=== PATIENT | female | born 1985 | race African-American/Black ===

== ENCOUNTER 2017-04-22 15:24 | Emergency (ER) | payer MEDICARE, OTHER ==
[~2017-04-22 15:24] MED LIST: ARIP20TA5 PO; ARIP30TA4 PO; FLUO10CA13 PO; FLUO20CA16 PO; LEVO100T5 PO
[2017-04-22 16:15] VITALS: BP 110/52
[2017-04-22 16:30] LABS: BILIRUBIN,URINE NEGATIVE (NEG); GLUCOSE,URINE NEGATIVE (NEG); NITRITE,URINE NEGATIVE (NEG); PROTEIN,URINE NEGATIVE (NEG-TRACE); UROBILINOGEN,URINE 0.2 mg/dL (0.2 mg/dL)
[2017-04-22] MEDS ORDERED: KETOROLAC 30 MG/ML INJ. IV ONE (16:30)
[2017-04-22 16:32] LABS: BASO # 0.1 x10^3/uL (0.0-0.2); BASO % 1 % (0-3); EOS % 1 % (0-3); HEMATOCRIT 39.6 % (36.0-47.0); HEMOGLOBIN 13.3 g/dL (12.0-15.5); LYMPH # 3.3 x10^3/uL (1.0-4.8); LYMPH % 32 % (24-48); MEAN CORPUSCULAR HEMOGLOBIN 29 pg (25-35); MEAN CORPUSCULAR HGB CONC 34 g/dL (31-37); MEAN CORPUSCULAR VOLUME 86 fL (79-100); MONO % 6 % (0-9); NEUT % 60 % (31-73); PLATELET COUNT 258 x10^3/uL (140-400); RED BLOOD COUNT 4.63 x10^6/uL (3.50-5.40); RED CELL DISTRIBUTION WIDTH 16.5 % (11.5-14.5); WHITE BLOOD COUNT 10.1 x10^3/uL (4.0-11.0)
[2017-04-22 16:38] LABS: BACTERIA,URINE MANY /HPF (0-FEW); RBC,URINE RARE /HPF (0-2); SQUAMOUS EPITHELIAL CELL,UR MANY /LPF
[2017-04-22 16:44] LABS: CALCIUM 9.2 mg/dL (8.5-10.1); CREATININE 0.8 mg/dL (0.6-1.0); GFR 102.6
[2017-04-22 16:49] LABS: ALBUMIN 3.6 g/dL (3.4-5.0); ALBUMIN/GLOBULIN RATIO 0.9 (1.0-1.7); TOTAL BILIRUBIN 0.2 mg/dL (0.2-1.0); TOTAL PROTEIN 7.4 g/dL (6.4-8.2)
--- NOTE | 2017-04-22 18:01 | RAD ---
Indication: Left sided pelvic pain. The uterus measures 8.6 x 5.7 x 5.5 cm. The endometrium is 15 mm in thickness. No uterine mass is detected. The right ovary measures 2.9 x 2.0 x 3.2 cm and the left ovary measures 4.0 x 2.8 x 2.9 cm. There is blood flow to both ovaries. No adnexal mass or free fluid is detected. IMPRESSION: Unremarkable pelvic ultrasound. Electronically signed by: Armen Gilmore MD (04/22/2017 5:57 PM) [facility]
[2017-04-22] MEDS ORDERED: LEVO750T31 PO (18:43)
[2017-04-22] MEDS ORDERED: METR500T PO (18:43)
--- NOTE | 2017-04-22 18:43 | PHYS DOC ---
Past Medical History Past Medical History: Hyperthyroid Additional Past Medical Histor: Hypothyroidism Past Surgical History: No Surgical History Additional Past Surgical Histo: Sinus surgery. Alcohol Use: None Drug Use: None Adult General Chief Complaint Chief Complaint: ABDOMINAL PAIN HPI HPI Patient is a 31 year old female who presents with abdominal pain. The patient reports 3 day history of left lower quadrant pain associated with left flank pain. Denies any associated symptoms including fevers/chills, nausea/vomiting, diarrhea/constipation, dysuria, hematuria, vaginal bleeding, discharge. Denies history of abdominal surgeries. Previously healthy. Review of Systems Review of Systems Constitutional: Denies fever or chills HENT: Denies nasal congestion or sore throat Respiratory: Denies cough or shortness of breath Cardiovascular: Denies chest pain or edema GI: Reports abdominal pain, denies nausea, vomiting, bloody stools or diarrhea : Denies dysuria or hematuria Musculoskeletal: Reports flank pain Integument: Denies rash or skin lesions Neurologic: Denies headache, focal weakness or sensory changes Current Medications Current Medications Current Medications Medications (Trade) Dose Ordered Sig/Johnson Start Time Stop Time Status Last Admin Dose Admin Ketorolac Tromethamine (Toradol) 30 mg 1X ONCE 04/22/17 16:30 04/22/17 16:31 DC 04/22/17 16:50 30 MG Allergies Allergies Allergies Coded Allergies Type Severity Reaction Last Updated Verified acetaminophen Allergy Unknown 11/09/13 Yes Physical Exam Physical Exam Constitutional: Well developed, well nourished, no acute distress, non-toxic appearance. HENT: Normocephalic, atraumatic, bilateral external ears normal, oropharynx moist, nose normal. Eyes: conjunctiva normal, no discharge. Cardiovascular: RRR, no murmurs, no edema. Lungs & Thorax: LCTAB, no wheezing, no respiratory distress. Abdomen: soft, left lower quadrant abdominal tenderness without rebound/guarding , no masses or pulsatile masses, nondistended. Skin: Warm, dry, no erythema, no rash. Back: left lower back & CVA tenderness is present. Extremities: No tenderness, no edema. Neurologic: Alert and oriented X 3, no focal deficits noted. Psychologic: Affect normal, judgement normal, mood normal. Current Patient Data Vital Signs Vital Signs Date Time Temp Pulse Resp B/P (MAP) Pulse Ox O2 Delivery O2 Flow Rate FiO2 04/22/17 16:15 98.5 48 16 110/52 (71) 98 Room Air 98.5 Lab Values Laboratory Tests Test 04/22/17 15:59 04/22/17 16:12 04/22/17 16:30 Urine Collection Type Unknown Urine Color Yellow Urine Clarity Clear Urine pH 6.0 Urine Specific [place] 1.015 Urine Protein Negative mg/dL (NEG-TRACE) Urine Glucose (UA) Negative mg/dL (NEG) Urine Ketones (Stick) Negative mg/dL (NEG) Urine Blood Negative (NEG) Urine Nitrite Negative (NEG) Urine Bilirubin Negative (NEG) Urine Urobilinogen Dipstick 0.2 mg/dL (0.2 mg/dL) Urine Leukocyte Esterase Large (NEG) Urine RBC Rare /HPF (0-2) Urine WBC 11-20 /HPF (0-4) Urine Squamous Epithelial Cells Many /LPF Urine Bacteria Many /HPF (0-FEW) Urine Mucus Slight /LPF POC Urine HCG, Qualitative Hcg negative (Negative) White Blood Count 10.1 x10^3/uL (4.0-11.0) Red Blood Count 4.63 x10^6/uL (3.50-5.40) Hemoglobin 13.3 g/dL (12.0-15.5) Hematocrit 39.6 % (36.0-47.0) Mean Corpuscular Volume 86 fL (79-100) Mean Corpuscular Hemoglobin 29 pg (25-35) Mean Corpuscular Hemoglobin Concent 34 g/dL (31-37) Red Cell Distribution Width 16.5 % (11.5-14.5) H Platelet Count 258 x10^3/uL (140-400) Neutrophils (%) (Auto) 60 % (31-73) Lymphocytes (%) (Auto) 32 % (24-48) Monocytes (%) (Auto) 6 % (0-9) Eosinophils (%) (Auto) 1 % (0-3) Basophils (%) (Auto) 1 % (0-3) Neutrophils # (Auto) 6.0 x10^3uL (1.8-7.7) Lymphocytes # (Auto) 3.3 x10^3/uL (1.0-4.8) Monocytes # (Auto) 0.6 x10^3/uL (0.0-1.1) Eosinophils # (Auto) 0.1 x10^3/uL (0.0-0.7) Basophils # (Auto) 0.1 x10^3/uL (0.0-0.2) Sodium Level 141 mmol/L (136-145) Potassium Level 4.0 mmol/L (3.5-5.1) Chloride Level 104 mmol/L (98-107) Carbon Dioxide Level 29 mmol/L (21-32) Anion Gap 8 (6-14) Blood Urea Nitrogen 7 mg/dL (7-20) Creatinine 0.8 mg/dL (0.6-1.0) Estimated GFR (Cockcroft-Gault) 102.6 BUN/Creatinine Ratio 9 (6-20) Glucose Level 75 mg/dL (70-99) Calcium Level 9.2 mg/dL (8.5-10.1) Total Bilirubin 0.2 mg/dL (0.2-1.0) Aspartate Amino Transferase (AST) 19 U/L (15-37) Alanine Aminotransferase (ALT) 31 U/L (14-59) Alkaline Phosphatase 54 U/L (46-116) Total Protein 7.4 g/dL (6.4-8.2) Albumin 3.6 g/dL (3.4-5.0) Albumin/Globulin Ratio 0.9 (1.0-1.7) L Laboratory Tests 04/22/17 16:30 Laboratory Tests 04/22/17 16:30 Microbiology 04/22/17 Wet Prep - Final, Complete EKG EKG [] Radiology/Procedures Radiology/Procedures PROCEDURE: PELVIS COMPLETE Indication: Left sided pelvic pain. The uterus measures 8.6 x 5.7 x 5.5 cm. The endometrium is 15 mm in thickness. No uterine mass is detected. The right ovary measures 2.9 x 2.0 x 3.2 cm and the left ovary measures 4.0 x 2.8 x 2.9 cm. There is blood flow to both ovaries. No adnexal mass or free fluid is detected. IMPRESSION: Unremarkable pelvic ultrasound. Electronically signed by: Armen Gilmore MD (04/22/2017 5:57 PM) [facility] DICTATED and SIGNED BY: ARMEN GILMORE MD DATE: 04/22/17 1756[] Course & Med Decision Making Course & Med Decision Making Pertinent Labs and Imaging studies reviewed. (See chart for details) The patient presents with abdominal pain & flank pain. Obtained UA which is consistent with urinary tract infection, will treat as pyelonephritis with associated flank pain. Afebrile, normal vitals, not vomiting. Will treat with PO levaquin. Wet prep shows bacterial vaginosis, ultrasound negative for additional pelvic pathology. She felt better after treatment. Recommend rest, hydration, tylenol/ibuprofen for pain, gave prescriptions for levaquin & flagyl. Follow up with PCP or gynecology in 2-3 days. Come back for high fever , severe pain, uncontrolled vomiting, any otherwise worsening condition. Discharged home in stable condition. [] Dragon Disclaimer Dragon Disclaimer This electronic medical record was generated, in whole or in part, using a voice recognition dictation system. Departure Departure Impression: Primary Impression: Urinary tract infection Additional Impression: Bacterial vaginosis Disposition: 01 HOME, SELF-CARE Condition: STABLE Referrals: NILESH ENRIQUEZ APRN (PCP) Patient Instructions: Bacterial Vaginosis, [id number], Urinary Tract Infection, [id number] Additional Instructions: You were seen in the emergency department today. You have a urinary tract infection and you have an infection, bacterial vaginosis. This is not a sexually transmitted infection. Please take the prescribed antibiotics to treat condition. Take Tylenol or ibuprofen for pain. Drink fluids to stay hydrated. Follow-up with primary care physician in 2-3 days. Return to the emergency department for high fever, severe pain, uncontrolled vomiting, any otherwise worsening condition. Scripts Metronidazole (FLAGYL) 500 Mg Tablet 1 TAB PO BID, #14 TAB Prov: SINGH PENA MD 04/22/17 Levofloxacin (LEVAQUIN) 750 Mg Tablet 1 TAB PO DAILY, #5 TAB Prov: SINGH PENA MD 04/22/17 Problem Qualifiers SINGH PENA MD Apr 22, 2017 18:43
== END 2017-04-22 19:01 | disposition home or self-care (01) ==
LOC: ER 15:24
DX: N39.0 Urinary tract infection, site not specified (principal); B96.89 Other specified bacterial agents as the cause of diseases classified elsewhere; N76.0 Acute vaginitis; E03.9 Hypothyroidism, unspecified; Z88.6 Allergy status to analgesic agent
CPT/HCPCS: 36415; 76856; 80053; 81001; 81025; 85025; 87086; 87491; 87591; 96374; 99285; J1885; Q0111

== ENCOUNTER → 2017-05-04 | Day surgery (SDC) | payer MEDICARE, OTHER ==
[~2017-05-04] MED LIST changes: +IV RINGERS,LACTATED 1000ML 1,000 ML IV SCH; +LEVO750T31 PO; +LIDOCAINE 1% PF 2 ML VIAL. ID PRN; +LIDOCAINE 2% PF Vial for OR 5 ML VIAL. ONE; +LURA40TA PO; +METR500T PO; +MIDAZOLAM HCL/PF 2 MG/2 ML VIAL. IV PRN; +PROPOFOL 40 ML IV ONE; +fentaNYL PF VIAL 100 MCG/2 ML VIAL IV PRN
[2017-05-04 10:52] LABS: NEG OBC UR NEG; POS OBC UR POS
[2017-05-04 12:17] VITALS: BP 122/65
--- NOTE | 2017-05-05 14:09 | PATHOLOGY ---
PATHOLOGY REPORT * * * * * * * * FINAL DIAGNOSIS: A. Terminal ileum biopsy: - No significant pathologic abnormalities. B. Colon biopsies, right colon: - No significant pathologic abnormalities. C. Colon biopsies, left colon: - No significant pathologic abnormalities. D. Colorectal biopsies, rectal polyp: - Hyperplastic polyp and small mucosal-associated lymphoid aggregate. (JPM:pit; 05/05/2017) COMMENT: Sections of the terminal ileum biopsy reveal segments of small intestine mucosa, one of which contains a mucosal- associated lymphoid aggregate. There are no sprue-like changes or significant inflammatory changes. Sections of the right colon and left colon biopsies appear similar and reveal segments of colonic mucosa. There is no evidence of a chronic destructive colitis, lymphocytic colitis or collagenous colitis. Sections of the rectal biopsy reveal a small hyperplastic polyp and small mucosal-associated lymphoid aggregate. There are no adenomatous changes or evidence of malignancy. (JPM:pit; 05/05/2017) REPORT ELECTRONICALLY SIGNED BY: Warren Hooker M.D. DATE/TIME: 05/05/2017 14:08 * * * * * * * * GROSS PATHOLOGY: A. Received in formalin labeled "Keren Sylvester, terminal ileum BX," is a segment of bragg soft tissue measuring 0.4 cm in maximum dimension. The specimen is submitted entirely in cassette A1. B. Received in formalin labeled "Keren Sylvester, right colon BX," are 3 segments of bragg soft tissue measuring 0.9 x 0.4 x 0.3 cm in aggregate dimensions and ranging from 0.3-0.4 cm in maximum dimension. The specimen is submitted entirely in cassette B1. C. Received in formalin labeled "Keren Sylvester, left colon BX," are 4 segments of bragg soft tissue measuring 1.5 x 0.6 x 0.3 cm in aggregate dimensions and ranging from 0.3 to 0.4 cm in maximum dimension. The specimen is submitted entirely in cassette C1. D. Received in formalin labeled "Keren Sylvester, rectal polyp," are 2 segments of bragg soft tissue measuring 0.6 x 0.3 x 0.3 cm in aggregate dimensions and measuring 0.3 cm each in maximum dimension. The specimen is submitted entirely in cassette D1. (TSD; 05/04/2017) INITIAL CPT CODE(S): A; 05535 B; 00898 C; 77062 D; 12839 Professional services performed by [facility] at [facility] [address] [place] [address] Technical services performed by [facility] at [address] [place] [address], [facility] [address] [place] [address]. SPECIMEN(S) RECEIVED: A.Terminal ileum biopsy B.Right colon biopsy C.Left colon biopsy D.Rectal polyp CLINICAL HISTORY: Abdominal pain PATIENT: KEREN SYLVESTER /AGE: 1207/01/1985 (Age: 31) PATIENT #: [id number] ALT CASE #: SPECIMEN COLLECTION DATE: 05/04/2017 SPECIMEN RECEIVED DATE: 05/04/2017 [facility] - [address] [place] [address] - PHONE: [phone] * * * END OF REPORT * * *
== END | disposition home or self-care (01) ==
LOC: ENDOS 10:22
PROVIDERS: ATTEND Internal Medicine Gastroenterology
DX: K62.1 Rectal polyp (principal); K64.0 First degree hemorrhoids
CPT/HCPCS: 45380; 81025; 88305; J2704; J2001

== ENCOUNTER 2019-07-17 17:32 | Emergency (ER) | payer MEDICARE, OTHER ==
[~2019-07-17] VITALS: Ht 171.4 cm; Wt 108.9 kg
[~2019-07-17 17:32] MED LIST changes: -IV RINGERS,LACTATED 1000ML 1,000 ML IV SCH; -LIDOCAINE 1% PF 2 ML VIAL. ID PRN; -LIDOCAINE 2% PF Vial for OR 5 ML VIAL. ONE; -MIDAZOLAM HCL/PF 2 MG/2 ML VIAL. IV PRN; -PROPOFOL 40 ML IV ONE; -fentaNYL PF VIAL 100 MCG/2 ML VIAL IV PRN
--- NOTE | 2019-07-17 19:22 | PHYS DOC ---
Past Medical History Past Medical History: Hyperthyroid Additional Past Medical Histor: Hypothyroidism Past Surgical History: No Surgical History Additional Past Surgical Histo: Sinus surgery. Alcohol Use: None Drug Use: None Adult General Chief Complaint Chief Complaint: SEXUALLY TRANSMITTED DISEASE HPI HPI Patient is a 34 year old [f__sex] who presents with [] Review of Systems Review of Systems Constitutional: Denies fever or chills [] Eyes: Denies change in visual acuity, redness, or eye pain [] HENT: Denies nasal congestion or sore throat [] Respiratory: Denies cough or shortness of breath [] Cardiovascular: No additional information not addressed in HPI [] GI: Denies abdominal pain, nausea, vomiting, bloody stools or diarrhea [] : Denies dysuria or hematuria [] Musculoskeletal: Denies back pain or joint pain [] Integument: Denies rash or skin lesions [] Neurologic: Denies headache, focal weakness or sensory changes [] Endocrine: Denies polyuria or polydipsia [] All other systems were reviewed and found to be within normal limits, except as documented in this note. Current Medications Current Medications Current Medications Medications (Trade) Dose Ordered Sig/Johnson Start Time Stop Time Status Last Admin Dose Admin Azithromycin (Zithromax) 1,000 mg 1X ONCE 07/17/19 19:30 07/17/19 19:31 DC 07/17/19 20:19 1,000 MG Ceftriaxone Sodium (Rocephin Im) 250 mg 1X ONCE 07/17/19 19:30 07/17/19 19:31 DC 07/17/19 20:20 250 MG Ondansetron HCl (Zofran Odt) 4 mg 1X ONCE 07/17/19 19:30 07/17/19 19:31 DC 07/17/19 20:19 4 MG Allergies Allergies Allergies Coded Allergies Type Severity Reaction Last Updated Verified acetaminophen Allergy Intermediate 04/25/17 Yes Physical Exam Physical Exam Constitutional: Well developed, well nourished, no acute distress, non-toxic appearance. [] HENT: Normocephalic, atraumatic, bilateral external ears normal, oropharynx moist, no oral exudates, nose normal. [] Eyes: PERRLA, EOMI, conjunctiva normal, no discharge. [] Neck: Normal range of motion, no tenderness, supple, no stridor. [] Cardiovascular:Heart rate regular rhythm, no murmur [] Lungs & Thorax: Bilateral breath sounds clear to auscultation [] Abdomen: Bowel sounds normal, soft, no tenderness, no masses, no pulsatile masses. [] Skin: Warm, dry, no erythema, no rash. [] Back: No tenderness, no CVA tenderness. [] Extremities: No tenderness, no cyanosis, no clubbing, ROM intact, no edema. [] Neurologic: Alert and oriented X 3, normal motor function, normal sensory function, no focal deficits noted. [] Psychologic: Affect normal, judgement normal, mood normal. [] Current Patient Data Vital Signs Vital Signs Date Time Temp Pulse Resp B/P (MAP) Pulse Ox O2 Delivery O2 Flow Rate FiO2 07/17/19 19:25 98.0 95 20 122/64 (83) Room Air 98.0 Lab Values Laboratory Tests Test 07/17/19 19:00 Urine Collection Type Unknown Urine Color Yellow Urine Clarity Cloudy Urine pH 7.5 Urine Specific [place] 1.025 Urine Protein 100 mg/dL (NEG-TRACE) Urine Glucose (UA) Negative mg/dL (NEG) Urine Ketones (Stick) Negative mg/dL (NEG) Urine Blood Small (NEG) Urine Nitrite Positive (NEG) Urine Bilirubin Negative (NEG) Urine Urobilinogen Dipstick 0.2 mg/dL (0.2 mg/dL) Urine Leukocyte Esterase Large (NEG) Urine RBC 0 /HPF (0-2) Urine WBC Tntc /HPF (0-4) Urine Squamous Epithelial Cells Mod /LPF Urine Bacteria Many /HPF (0-FEW) Urine Mucus Mod /LPF Microbiology 07/17/19 Wet Prep - Final, Complete EKG EKG [] Radiology/Procedures Radiology/Procedures [] Course & Med Decision Making Course & Med Decision Making Pelvic 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 Departure Departure Impression: Primary Impression: Urinary tract infection Additional Impressions: Vaginal discharge Concern about sexually transmitted disease in female without diagnosis Disposition: 01 HOME, SELF-CARE Condition: STABLE Referrals: NILESH ENRIQUEZ APRN (PCP) Patient Instructions: Sexually Transmitted Disease, Urinary Tract Infection Additional Instructions: Drink plenty of fluids. Take medications as prescribed. Follow up with her primary care provider. Been treated today for Chlamydia and gonorrhea. If your culture taken today comes back positive in 48 hours they will call you only. Scripts Cephalexin (KEFLEX) 500 Mg Capsule 1 CAP PO BID for 7 Days, #14 CAP 0 Refills Prov: KOKO CEBALLOS APRN 07/17/19 Problem Qualifiers Primary Impression: Urinary tract infection Urinary tract infection type: site unspecified Hematuria presence: without hematuria Qualified Codes: N39.0 - Urinary tract infection, site not spec ified KOKO CEBALLOS SPRIGGER Jul 17, 2019 19:22
[2019-07-17 19:25] VITALS: BP 122/64
[2019-07-17] MEDS ORDERED: cefTRIAXone IM 250 MG VIAL IM ONE (19:30)
[2019-07-17] MEDS ORDERED: AZITHROMYCIN 250 MG TABLET. PO ONE (19:30)
[2019-07-17] MEDS ORDERED: ONDANSETRON ODT 4 MG TAB.RAPDIS. PO ONE (19:30)
[2019-07-17 19:47] LABS: BILIRUBIN,URINE NEGATIVE (NEG); CLARITY,URINE CLOUDY; COLOR,URINE YELLOW; NITRITE,URINE POSITIVE (NEG); PH,URINE 7.5; PROTEIN,URINE 100 mg/dL (NEG-TRACE); UROBILINOGEN,URINE 0.2 mg/dL (0.2 mg/dL)
[2019-07-17 19:55] LABS: SQUAMOUS EPITHELIAL CELL,UR MOD /LPF
[2019-07-17 19:56] LABS: BACTERIA,URINE MANY /HPF (0-FEW); RBC,URINE 0 /HPF (0-2); WBC,URINE TNTC /HPF (0-4)
[2019-07-17] MEDS ORDERED: CEPH-264 PO (20:17)
[2019-07-19 18:09] LABS: GC PROBE Negative (Negative)
== END 2019-07-17 20:36 | disposition home or self-care (01) ==
LOC: ER 17:32
DX: N39.0 Urinary tract infection, site not specified (principal); N89.8 Other specified noninflammatory disorders of vagina; Z20.2 Contact with and (suspected) exposure to infections with a predominantly sexual mode of transmission; E03.9 Hypothyroidism, unspecified; Z88.6 Allergy status to analgesic agent; Z11.59 Encounter for screening for other viral diseases
CPT/HCPCS: 81001; 81025; 87086; 87186; 87491; 87591; 96372; 99284; J0696; Q0111; Q0144; Q0162